=== PATIENT | male | born 2000 | race Hispanic/Latino ===

== ENCOUNTER 2024-08-16 05:01 | Emergency (ER) | payer BC ==
[~2024-08-16] VITALS: Ht 165.1 cm; Wt 83.9 kg
--- NOTE | 2024-08-16 05:17 | NUR ---
PATIENT BLADDER SCANNED 369CC URINE NOTED, ED DOCTOR MADE AWARE
--- NOTE | 2024-08-16 06:14 | ERN ---
General Chief Complaint: Urinary Retention Stated Complaint: URINARY RETENTION Time Seen by MD: 05:48 Source: patient History of Present Illness Initial Comments Patient is a 24-year-old male who comes in with urinary retention. He has not been able to void in over a day. He wonders if it is related to medications that he is taking. He was recently discharged from [facility] two weeks ago. He was being treated for depression with some delusional aspect and was discharged on Lexapro Abilify and trazodone. He is otherwise asymptomatic. Allergies: Coded Allergies: cefdinir (Unverified Allergy, Unknown, 08/16/24) Past Medical History Past Medical History: Depression, Other Medical History Other: INSOMNIA Past Surgical History: Tonsillectomy, Other Surgical History Other: BMT ROS Dictation Review of systems is negative. He does not have depressive symptoms he says he feels pretty good. No shortness of breath no chest pain no difficulty breathing no nausea no vomiting no chills no fever moves all extremities. Physical Exam General Appearance: (+) mild distress Orientation: (+) oriented x 3 Genital Comment Bladder scan of the patient's bladder revealed 350 cc of urine. MDM We inserted a Castellon catheter into the patient's bladder and 600 cc of urine came out it appears clear. I discussed the patient's medications with the pharmacist and the leading candidate for causing urinary retention seems to be the Abilify because of its anticholinergic effect and mild SSRI affect. However both the Lexapro and trazodone have been reported to cause urinary retention. The patient states he stopped taking the trazodone several days ago because he felt he did not need it anymore, it was just for sleep. Given the fact that main reason for going to [facility] was depression I suggested he stop the Abilify and continue his Lexapro. I will leave it to him to decide if this is a safe approach for him. He will be staying with his family and we will have access to [facility] if need be. He also plans to contact [facility] tomorrow to see what their opinions are. We will fit the patient with a leg bag and discharge him from the hospital. The question of how long to leave the Castellon catheter in place is difficult to answer going by a strict half-life of 75 hours with the Abilify that would mean the patient would need to leave the catheter in for 15 days to achieve five half lives. The caveat is that I do not know the concentration of Abilify that is necessary to cause urinary retention. ED Course Orders Procedure Category Date Status Time Nurse Driven Castellon ABRAHAM 08/16/24 In Process Removal Pro 06:00 Bladder Scan CPOE 08/16/24 Transmitted 06:01 Vital Signs Date Time Temp Pulse Resp B/P (MAP) Pulse Ox O2 Delivery O2 Flow Rate FiO2 08/16/24 05:06 98.8 74 20 128/90 100 Room Air* 0 21 08/16/24 05:03 97.0 82 16 136/88 98 Room Air DX & DISP Disposition: Discharge Departure Impression: Primary Impression: Acute urinary retention Condition: Stable Additional Instructions: Please return to the ED if you have signs or symptoms of a urinary tract infection such as increased fever or chills pain burning in her lower abdomen or if the urine becomes cloudy. Referrals: SELF,REFERRAL (PCP) STONE BROCK MD Aug 16, 2024 06:14
[2024-08-16 06:17] VITALS: BP 126/90; PULSE 72; RESP 20; TEMP 98.8; O2SAT 100
== END 2024-08-16 06:20 | disposition home or self-care (01) ==
LOC: EDH 05:01
DX: R33.9 Retention of urine, unspecified (principal); F32.A Depression, unspecified; Z88.1 Allergy status to other antibiotic agents; Z90.89 Acquired absence of other organs; Z94.81 Bone marrow transplant status; Z98.890 Other specified postprocedural states
CPT/HCPCS: 51702; 99283

== ENCOUNTER → 2025-02-15 | Emergency (ER) | payer BC ==
[~2025-02-15] VITALS: Ht 165.1 cm; Wt 86.2 kg
[~2025-02-15] MED LIST: ACET-2079 PO; LEVO-70 PO
--- NOTE | 2025-02-15 01:02 | ERN ---
ED Note History of Present Illness Stated Complaint: R EAR PAIN Chief Complaint: Earache Time Seen by MD: 00:41 Dictation: PATIENT IS A 25-YEAR-OLD MALE COMING IN TODAY WITH BILATERAL EAR PAIN GREATER ON THE RIGHT THAT HE HAS HAD FOR ONE MONTH. NO FEVER NO CHILLS NO NAUSEA VOMITING. HE HAS BEEN GOING TO SEE HIS DOCTOR AT [facility] AND HAS BEEN GIVEN A NUMBER OF EAR DROPS AND SHOTS TO INCLUDE A TORADOL SHOT TODAY. HE IS CURRENTLY ON NEOMYCIN OTIC DROPS. STATES HE CAN NOT STAND THE PAIN. PENDING AN ENT REFERRAL. Allergies: Coded Allergies: cefdinir (Unverified Allergy, Unknown, 08/16/24) Past Medical History Past Medical History: Anxiety, Depression, Other Additional Past Medical Hx: INSOMNIA Surgical History: Tonsillectomy, Other Surgical History Other: BMT RN Note Reviewed/Agreed w/PFSH: Yes Review of System Dictation CONSTITUTIONAL: NEGATIVE EXCEPT FOR HPI HEAD/FACE: NEGATIVE EXCEPT FOR HPI EENT: NEGATIVE EXCEPT FOR HPI BILATERAL EAR PAIN GREATER ON THE RIGHT HEARING LOSS TO LEFT EAR FOR FIVE YEARS SECONDARY TO PERFORATED TYMPANIC MEMBRANE RESPIRATORY: NEGATIVE EXCEPT FOR HPI GASTROINTESTINAL/ABDOMINAL: NEGATIVE EXCEPT FOR HPI GENITOURINARY: NEGATIVE EXCEPT FOR HPI MUSCULOSKELETAL: NEGATIVE EXCEPT FOR HPI INTEGUMENTARY: NEGATIVE EXCEPT FOR HPI NEUROLOGICAL/PSYCH: NEGATIVE EXCEPT FOR HPI HEMATOLOGIC/LYMPHATIC: NEGATIVE EXCEPT FOR HPI ALL SYSTEMS NEGATIVE, EXCEPT NOTED ABOVE. 13 POINT REVIEW OF SYSTEMS ASSESSED AND ALL NEGATIVE EXCEPT FOR ABOVE. Initial Vital Sign VS Vital Signs Date Time Temp Pulse Resp B/P (MAP) Pulse Ox O2 Delivery O2 Flow Rate FiO2 02/15/25 00:37 97.9 83 18 116/70 100 Room Air 0 Physical Exam Dictation VITAL SIGNS REVIEWED GENERAL APPEARANCE: ALERT, ORIENTED X 3, MODERATE ACUTE DISTRESS, WELL DEVELOPED, NOURISHED. HEAD AND FACE: NON-TRAUMATIC. EYES: PERRL, PINK CONJUNCTIVAS, EYELID NO TRAUMA, ANTERIOR CHAMBER WITH ARCUS SENILIS. EARS: PINNAS INTACT AND SIGNIFICANT OTIC CANAL SWELLING TO THE RIGHT UNABLE TO VISUALIZE TM. TM WITH PERFORATION AND AN EAR TUBE IN PLACE. MASTOID TENDERNESS BILATERALLY NOSE: NO DISCHARGE, NO BLEEDING. OROPHARYNX: MOUTH NORMAL, TONGUE PINK, PHARYNX CLEAR,NO ERYTHEMA, TONSILS NO EXUDATES, NO ABSCESSES NOTED, MUCOUS MEMBRANE MOIST NECK: SUPPLE, NON-TENDER, NO THYROMEGALY, NO MASSES, NO JVD, NO BRUITS BREAST:DEFERRED CHEST:NO TENDERNESS, NO CREPITUS, NO PARADOXICAL MOVEMENT, NO RETRACTIONS LUNGS:CLEAR, WELL-VENTILATED, SYMMETRIC, NO RALES, NO WHEEZING, NO RHONCHI, NO STRIDOR, GOOD BREATH SOUNDS BILATERALLY HEART: REGULAR RATE, REGULAR RHYTHM, NO MURMUR, NO GALLOPS VASCULAR: NO PERIPHERAL EDEMA, ABDOMEN: SOFT, POSITIVE BOWEL SOUNDS, NONDISTENDED, NO GUARDING, NONTENDER, NO REBOUND, NO MASSES NO HEPATOMEGALY, NO SPLENOMEGALY, NO BUI'S SIGN, NO HERNIAS. RECTAL: DEFERRED GENITAL: DEFERRED NEUROLOGICAL: NORMAL SPEECH, MOTOR FUNCTION INTACT, SENSORY FUNCTION INTACT MUSCULOSKELETAL: NECK NONTENDER, FULL RANGE OF MOTION, BACK NONTENDER, FULL RANGE OF MOTION, EXTREMITIES: NONTENDER, FULL RANGE OF MOTION SKIN: COLOR PINK, DRY, NO TURGOR, NO RASH, NO LACERATIONS, NO ABRASIONS, NO CONTUSIONS. LYMPHATIC: DEFERRED Results (Laboratory/Radiology) Labs Reviewed?: Yes ED Course ED Course Orders Procedure Category Date Status Time Acetaminophen With PHA 02/15/25 Transmitted Codeine (Tylenol-Code 01:00 Ketorolac 60mg/2ml PHA 02/15/25 Transmitted (Toradol 60mg/2ml) 01:00 Vital Signs Date Time Temp Pulse Resp B/P (MAP) Pulse Ox O2 Delivery O2 Flow Rate FiO2 02/15/25 00:37 97.9 83 18 116/70 100 Room Air 0 0055/NO LABS OR IMAGING INDICATED. WE WILL GIVE PATIENT KETOROLAC AND TYLENOL WITH CODEINE DISCHARGED HOME TO CONTINUE HIS IN NEOMYCIN OTIC DROPS. TOLD SEE HIS PRIMARY CARE DOCTOR FROM [facility] FOR ENT REFERRAL Medical Decision Making MDM MEDICAL DISCHARGE MAKING BASED ON EMPIRIC TREATMENT FOR SEVERE OTALGIA. PATIENT ALREADY ON NEOMYCIN OTIC DROPS WE WILL BE PRESCRIBED TYLENOL WITH CODEINE TOLD TO SEE HIS DOCTOR MONDAY FOR FOLLOW UP AND MANAGE DX & DISP Disposition: Discharge Departure Impression: Primary Impression: External otitis of right ear Condition: Stable Scripts Levofloxacin (Levofloxacin) 500 Mg Tablet 1 TAB PO DAILY for 10 Days, #10 TAB 0 Refills Prov: GILLIAN BRASHER COUNCILPERSON 02/15/25 Acetaminophen with Codeine (Acetaminophen-Cod #3 Tablet) 300 Mg-30 Mg Tablet 1 TAB PO Q6H PRN for MODERATE TO SEVERE, #15 TAB 0 Refills Prov: GILLIAN BRASHER 02/15/25 Additional Instructions: Follow-up with primary care provider in 1 to 2 days. Take medications as directed here in the emergency room. Okay to continue home medications unless otherwise discussed during your visit in the emergency room today. Return to your nearest emergency room if symptoms worsen or if there is no improvement. Call 911 if you need immediate assistance. Take Tylenol or Motrin [id number]-[id number] as needed and if no contraindications are present. Increase oral hydration. A wound culture or urine culture was ordered here in the emergency room department please follow-up with primary care provider and advise them to get repeat ports from our facility. If you had any Doroteo wrap/splints that were applied here, please do not remove them until you see your primary care or specialty. Take Levaquin as directed until gone. Use neomycin drops with cotton balls as directed by your doctor. Take Tylenol with codeine for severe pain. See your primary care doctor for referral to ENT in the next 1-2 days. Referrals: SELF,REFERRAL (PCP) Time of Disposition: 00:58 I have reviewed the case, and I agree with, Diagnosis and Plan GILLIAN BRASHER Feb 15, 2025 01:02
[2025-02-15 01:06] VITALS: BP 121/65; PULSE 89; RESP 18; TEMP 98.8; O2SAT 99
== END ==
LOC: EDH 00:36
DX: H60.91 Unspecified otitis externa, right ear (principal); H92.02 Otalgia, left ear; F41.9 Anxiety disorder, unspecified; F32.A Depression, unspecified; Z88.1 Allergy status to other antibiotic agents; Z90.89 Acquired absence of other organs
CPT/HCPCS: 99284; 96372; J1885